=== PATIENT | male | born 1975 | race African-American/Black ===

== ENCOUNTER 2024-04-18 19:15 | Inpatient (IN) | payer OTHER ==
[2024-04-18 20:06] VITALS: BMI 22.3
[2024-04-18] MEDS ORDERED: BENZOCAINE/MENTHOL (CHLORASEPTIC ) LOZENGE MM PRN (20:23)
[2024-04-18] MEDS ORDERED: MAGNESIUM HYDROX 2400MG/30ML ORAL SUSPENSION 30 ML CUP PO PRN (20:23)
[2024-04-18] MEDS ORDERED: BENZONATATE 200 MG CAPSULE PO PRN (20:23)
[2024-04-18] MEDS ORDERED: IBUPROFEN 600 MG TABLET (FP) PO PRN (20:23)
[2024-04-18] MEDS ORDERED: ACETAMINOPHEN 325 MG TABLET (FP) PO PRN (20:23)
[2024-04-18] MEDS ORDERED: P-EPHED 60MG/TRIPROLIDI 2.5MG TABLET PO PRN (20:23)
[2024-04-18] MEDS ORDERED: LOPERAMIDE HCL 2 MG CAPSULE PO PRN (20:23)
[2024-04-18] MEDS ORDERED: ONDANSETRON *ODT* 4 MG TABLET SL PRN (20:23)
[2024-04-18] MEDS ORDERED: MAG HYDROX/AL HYDROX/SIMETH 30 ML UNIT-DOSE CUP PO PRN (20:23)
[2024-04-18] MEDS ORDERED: BISMUTH SUBSALICYLATE 524 MG/30 ML PO PRN (20:23)
[2024-04-18] MEDS ORDERED: NICOTINE POLACRILEX 2 MG GUM BUC PRN (20:23)
[2024-04-18] MEDS ORDERED: POLYETHYLENE GLYCOL (HEALTHYLAX) 3350 17 GM PACKET PO PRN (20:23)
[2024-04-18] MEDS ORDERED: guaiFENesin 600 MG TABLET.ER (FP) PO PRN (20:23)
[2024-04-18] MEDS ORDERED: NICOTINE POLACRILEX 2 MG LOZENGE BC PRN (20:23)
[2024-04-18] MEDS ORDERED: IBUPROFEN 400 MG TABLET (FP) PO PRN (20:23)
[2024-04-18] MEDS: METHOCARBAMOL 500 MG TABLET PO PRN (22:22)
[2024-04-18] MEDS: THIAMINE 100 MG TABLET PO SCH (22:22)
[2024-04-18] MEDS: hydrOXYzine PAMOATE 25 MG CAPSULE (FP) PO PRN (22:22)
[2024-04-18] MEDS: MELATONIN 5 MG TABLETS PO SCH (22:23)
[2024-04-19] MEDS ORDERED: diazePAM 5 MG TABLET PO PRN (10:10)
[2024-04-19] MEDS: PRENATAL VITAMINS W/ FOLIC ACID TABLET (FP) PO SCH (10:42)
[2024-04-19] MEDS: diazePAM 5 MG TABLET PO SCH (10:42)
[2024-04-19 11:12] LABS: HEMATOCRIT 46.1 % (35.4-49); HEMOGLOBIN 15.7 GM/dL (11.7-16.9); MCH 31.3 pg (25.7-33.7); MCHC 34.1 g/dl (32.0-35.9); MEAN CELL VOLUME 91.8 fl (80-96); PLATELET COUNT 257 10^3/uL (134-434); RBC 5.02 M/mm3 (4.00-5.60); RDW 13.8 % (11.9-15.9); WHITE BLOOD COUNT 3.4 K/mm3 (4.0-10.0)
[2024-04-19 11:14] LABS: POTASSIUM 4.1 mmol/L (3.5-5.1)
[2024-04-19 11:22] LABS: CALCIUM 9.6 mg/dL (8.5-10.1)
[2024-04-19 11:23] LABS: ALBUMIN 4.2 g/dl (3.4-5.0)
[2024-04-19 11:26] LABS: CREATININE 0.9 mg/dL (0.55-1.3)
[2024-04-19 11:28] LABS: BILIRUBIN,TOTAL 1.8 mg/dL (0.2-1); TOT PROT 8.1 g/dl (6.4-8.2)
[2024-04-19] MEDS: DICYCLOMINE HCL 10 MG CAPSULE PO PRN (13:30)
[2024-04-21] MEDS: diazePAM 5 MG TABLET PO SCH (05:54)
[2024-04-21] MEDS: NALTREXONE HCL 50 MG TABLET PO SCH (15:01)
[2024-04-21 20:54] VITALS: TEMP 97.8
[2024-04-22] MEDS: diazePAM 5 MG TABLET PO SCH (05:26)
[2024-04-22 06:17] VITALS: RESP 16
[2024-04-22 09:19] VITALS: BP 100/65; PULSE 68
[2024-04-23] MEDS ORDERED: diazePAM 5 MG TABLET PO ONE (06:00)
== END 2024-04-22 08:47 | disposition home or self-care (01) | DRG 775 ==
LOC: YASAS 19:15 → Y3N 21:06
PROVIDERS: ADMIT Allergy & Immunology; ATTEND Surgery
PROC: HZ2ZZZZ Detoxification Services for Substance Abuse Treatment (ICD-10-PCS; principal; 2024-04-18)
DX: F10.230 Alcohol dependence with withdrawal, uncomplicated (principal); F12.20 Cannabis dependence, uncomplicated
CPT/HCPCS: 36415; 80053; 80305; 80307; 85027; 86780; 93005; 93010